=== PATIENT | female | born 1980 | race Caucasian/White ===

== ENCOUNTER 2019-12-07 13:46 | Emergency (ER) | payer MEDICARE, MEDICAID ==
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
[2019-12-07 17:51] VITALS: BP 127/58
== END 2019-12-07 17:45 | disposition home or self-care (01) ==
LOC: ER 13:46
DX: Z04.41 Encounter for examination and observation following alleged adult rape (principal)
CPT/HCPCS: 99283